=== PATIENT | female | born 2000 | race Caucasian/White ===

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

== ENCOUNTER → 2019-01-03 | Outpatient (REF) | payer OTHER | LOC: M LAB REF 16:56 | PROVIDERS: ATTEND Advanced Practice Midwife | DX: O26.893 Other specified pregnancy related conditions, third trimester (principal) ==

== ENCOUNTER 2019-01-13 18:33 | Outpatient (CLI) | payer OTHER ==
[~2019-01-13] VITALS: Ht 157.5 cm; Wt 100.6 kg
[2019-01-13 18:47] VITALS: BP 120/78
--- NOTE | 2019-01-13 20:11 | IPNPDOC ---
Text Note Date of Service The patient was seen on 01/13/19. NOTE Subjective: Patient is a 18-year-old female who is a at 38 weeks gestation with an SHARRON of 01/27/19 based off of her LMP and consistent with her first trimester ultrasound. Patient initiated care in her first trimester with [facility]. Her has been complicated by bipolar, depression and gallstones that causes a blockage resulting in elevated liver enzymes, which patient has been t aking Ursodiol for. Her livery enzymes have improved since starting medication. She presents to L&D with complaints of a gush of fluid that occurred this morning. She reports she hasn't had any leaking since. She reports active movement. She denies vaginal bleeding. She reports contractions to be about every 8 minutes at some points during the day but reports they aren't happening as often. Medical history: bipolar, depression, gallstones Surgical history: none Family history: lupus, fibromyalgia, Chiari malformation, depression, diabetes, heart disease Social history: denies any history of STD. Denies being a smoker. Denies alcohol or illicit drug use prior to or during . Objective: VS: see below. FHR: 120, moderate variability, positive accelerations, no decelerations. Contractions: occasional. SSE: thin white discharge noted. No pooling in vagina and no fluid leaking from cervical os with Valsalva. Cervix appears thick and closed. Nitrazine negative. Fern negative. A+Ox3. Respiratory rate is regular without use of accessory muscles. Cardiovascular. no clubbing and no pitting edema. Abdomen palpates soft and without tenderness. Patient declines SVE given information of cervical length and physical appearance of cervix. Assessment: IUP at 38 weeks gestation, not in active labor, Category I FHR tracing. Plan: Patient discharged to home. She has an appointment tomorrow in the office and will follow up. Reviewed access to care, kick count, labor signs, and danger signs to report. VS,Johnbone, I+O VS, Johnbone, I+O Vital Signs Date Time Temp Pulse Resp B/P (MAP) Pulse Ox O2 Delivery O2 Flow Rate FiO2 01/13/19 18:47 97.5 93 18 120/78 (92) DEEP AQUINO CNM Jan 13, 2019 20:11
== END 2019-01-13 20:15 | disposition home or self-care (01) ==
LOC: M LDO 18:33
PROVIDERS: ATTEND Advanced Practice Midwife
DX: O26.893 Other specified pregnancy related conditions, third trimester (principal); O47.1 False labor at or after 37 completed weeks of gestation; Z3A.38 38 weeks gestation of pregnancy

== ENCOUNTER → 2019-01-14 | Outpatient (CLI) | payer OTHER | LOC: M SMT 13:42 | PROVIDERS: ATTEND Advanced Practice Midwife | DX: O26.893 Other specified pregnancy related conditions, third trimester (principal) ==

== ENCOUNTER → 2019-01-21 | Outpatient (CLI) | payer OTHER ==
[~2019-01-21] MED LIST changes: -LAMO100T PO; +LAMO100T3 PO; +OMEP-218 PO; +ZOFR4TAB16 PO
[2019-01-22 00:41] VITALS: BP 124/70
[2019-01-22 01:02] VITALS: BP 124/86
== END ==
LOC: M LDO 21:11
PROVIDERS: ATTEND Specialist
DX: O47.1 False labor at or after 37 completed weeks of gestation (principal); Z3A.39 39 weeks gestation of pregnancy

== ENCOUNTER 2019-01-27 02:00 | Outpatient (CLI) | payer OTHER ==
[~2019-01-27] VITALS: Ht 157.5 cm; Wt 101.3 kg
[~2019-01-27 02:00] MED LIST changes: -OMEP-218 PO; -ZOFR4TAB16 PO
[2019-01-27 02:48] VITALS: BP 126/76
== END 2019-01-27 04:16 | disposition home or self-care (01) ==
LOC: M LDO 02:00
PROVIDERS: ATTEND Obstetrics & Gynecology
DX: O47.1 False labor at or after 37 completed weeks of gestation (principal); Z3A.40 40 weeks gestation of pregnancy; O99.343 Other mental disorders complicating pregnancy, third trimester; F31.9 Bipolar disorder, unspecified

== ENCOUNTER 2019-01-29 06:13 | Inpatient (IN) | payer OTHER ==
[~2019-01-29] VITALS: Ht 157.5 cm; Wt 102.3 kg
[2019-01-29] VITALS (41 sets, daily range): BP systolic 90–159; BP diastolic 50–99
[~2019-01-29 06:13] MED LIST changes: +LAMO100T PO; -LAMO100T3 PO
[2019-01-29] MEDS ORDERED: LACTATED RINGER'S 1000 ML IV STA (07:08)
[2019-01-29 08:11] LABS: HEMATOCRIT 33.9 % (36.0-47.0); HEMOGLOBIN 11.3 g/dl (12.0-15.5); MEAN CORPUSCULAR HEMOGLOBIN 29.4 pg (27.0-33.0); MEAN CORPUSCULAR HGB CONC 33.3 g/dl (32.0-36.5); MEAN CORPUSCULAR VOLUME 88.3 fl (80.0-96.0); PLATELET COUNT, AUTOMATED 274 10^3/uL (150-450); RED BLOOD COUNT 3.84 10^6/uL (4.00-5.40); WHITE BLOOD COUNT 10.6 10^3/uL (4.0-10.0)
[2019-01-29] MEDS ORDERED: miSOPROStol 50 MCG 1/2 TAB (S0191) PO SCH (09:00)
--- NOTE | 2019-01-29 09:48 | HPE ---
DATE OF ADMISSION: 01/29/2019 Ignacio is a 18-year-old 1, para 0 at 40-2/7 weeks gestation, estimated date of confinement ( EDC) of 01/27/2019 based on last menstrual period and confirmed by first trimester ultrasound. She presents to labor and delivery today for induction of labor due to term . She does report some occasional contractions. Denies vaginal bleeding or leakage of fluid. The fetus has been active. Her care was initiated at [facility] in the first trimester. course complicated by a history of bipolar depression. No current medications and none in the last year. Cholelithiasis with elevated liver enzymes. She has been on ursodiol 300 mg twice a day, history of Staphylococcus aureus (MRSA) with nasal swabs, negative results. Rubella nonimmune. OBSTETRICAL HISTORY: [facility] OBSTETRIC LABS: O negative, antibody screen negative, rubella nonimmune, VDRL nonreactive. Urine culture no growth. Hep B surface antigen negative. HIV negative. Hep C antibody nonreactive. Gonorrhea and chlamydia negative. Panorama testing low risk for aneuploidy. Female fetus. Gestational diabetic screening normal at 117. GBS negative, MRSA culture was times three negative. Recent liver enzymes with on 12/12/2018: AST 14, ALT 17, bile acids 4.7. PAST MEDICAL HISTORY: Bipolar depression, seasonal allergies. SURGERIES: Tonsils and adenoids. FAMILY HISTORY: Autism, lupus and fibromyalgia, deep venous thrombosis (DVT), Chiari malformation, varicose veins, depression, anxiety, diabetes, heart disease. SOCIAL HISTORY: The patient is single. There is no father of the baby involved. She does have a supportive grandmother and multiple family members. She is a nonsmoker. Denies alcohol and drug use. No history of any sexually transmitted infections and denies history of abuse physical, sexual and emotional. ALLERGIES: No known drug allergies. CURRENT MEDICATIONS: - ursodiol 300 mg twice a day - Zofran 4 mg as needed - vitamin OBJECTIVE: Temperature 97.2, pulse 96, respiration 18, BP 129/82 , 139/102, 142/96. She is alert and oriented times three. She is smiling and talkative. She is in no apparent discomfort. heart rate is 120 with moderate variability, positive accelerations, no decelerations observed. There is an occasional contraction. Her abdomen is gravid and cephalic presentation. Estimated weight 8 pounds. Sterile vaginal exam: 1 cm dilated, 25% effaced, -3 station, posterior moderate texture. No show with exam. ASSESSMENT: Interim at 40-2/7 weeks. heart rate category 1, term . PLAN: Admit the patient to labor and delivery for induction of labor. Routine labs with the addition of a pre-eclamptic profile and a spot urine due to the elevated BP upon arrival. Saline lock. Out of bed ad roman. Regular diet at this time. Misoprostol 50 mcg by mouth every 4 hours for cervical ripening. I did review risks and benefits and alternatives to today's inductions. The patient and her grandmother's questions have been answered. She requests to proceed with induction. She has been verbally consented for emergency surgery, blood products if necessary. I do anticipate cervical ripening.
[2019-01-29 10:00] LABS: ALT/SGPT 11 U/L (12-78); BILIRUBIN,TOTAL 0.3 MG/DL (0.2-1.0); CREATININE FOR GFR 0.67 MG/DL (0.55-1.30); LDH LACTATE DEHYDROGENASE 138 U/L (84-246); URIC ACID 6.5 MG/DL (2.6-6.0)
[2019-01-29 10:01] LABS: TOTAL PROTEIN,RANDOM URINE 41.9 MG/DL (0.0-12.0)
[2019-01-29] MEDS ORDERED: FENTANYL 2MCG/ML ROPIVACAINE 0.2% IN 0.9% NACL 100ML IVBAG As Ordered ONE (13:20)
[2019-01-29] MEDS ORDERED: diphenhydrAMINE INJ 50MG/ML VIAL (J1200) IV PRN (13:25)
[2019-01-29] MEDS ORDERED: NALOXONE INJ 0.4 MG/1 ML VIAL (J2310) IV PRN (13:25)
[2019-01-29] MEDS ORDERED: EPIDURAL COMMENT XX SCH (13:25)
[2019-01-29] MEDS ORDERED: ONDANSETRON 4MG/2ML VIAL (J2405) IV PRN (13:25)
[2019-01-29] MEDS ORDERED: REFRIGERATOR IV KEYS XX PRN (13:25)
[2019-01-29] MEDS ORDERED: EPIDURAL/PCA KEYS XX PRN (13:25)
[2019-01-29] MEDS: FENTANYL/ROPIVACAINE/NACL BAG 100 ML EPIDURAL SCH ×2 (13:25→19:16)
[2019-01-29] MEDS ORDERED: LACTATED RINGER'S 1000 ML IV ONE (14:00)
[2019-01-29] MEDS: LR 1,000 ML IV SCH ×2 (14:25→16:39)
[2019-01-29] MEDS ORDERED: LR 1,000 ML IV SCH (16:11)
[2019-01-29] MEDS ORDERED: OXYTOCIN DRIP 30 UNITS in APPROPRIATE DILUENT 1 EA IV SCH ×2 (16:15→23:39)
[2019-01-29] MEDS ORDERED: DIBUCAINE 1% OINTMENT 30GM TOP PRN (23:45)
[2019-01-29] MEDS ORDERED: RHOGAM 300 MCG (1500 IU) INJ (J2790) IM SCH (23:45)
[2019-01-29] MEDS ORDERED: IBUPROFEN 600 MG TAB PO PRN (23:45)
[2019-01-29] MEDS ORDERED: IBUPROFEN 800 MG TAB PO PRN (23:45)
[2019-01-29] MEDS ORDERED: MEASLES,MUMPS,RUBELLA VACCINE INJ (MMR-II) (90707) SC SCH (23:45)
[2019-01-29] MEDS ORDERED: ACETAMINOPHEN TAB 650MG DOSE (2X325MG) PO PRN (23:45)
[2019-01-29] MEDS ORDERED: DOCUSATE SODIUM 100 MG CAP PO PRN (23:45)
[2019-01-29] MEDS ORDERED: METHYLERGONOVINE MALEATE 0.2 MG TAB PO PRN (23:45)
[2019-01-30 01:34] VITALS: BP 125/90
[2019-01-30 05:42] VITALS: BP 120/68
[2019-01-30] MEDS: ACETAMINOPHEN 500 MG TAB PO PRN ×2 (07:02→17:58)
--- NOTE | 2019-01-30 07:53 | DN ---
DATE OF DELIVERY: 01/29/2019 DESCRIPTION OF DELIVERY: Ignacio is a 18-year-old, 1, para 1-0-0-1 now, who was admitted to labor and delivery for induction of labor. Misoprostol was utilized and IV Pitocin and labor did ensue. She utilized an epidural for her labor coping. She reached full dilation at 2130. She pushed to a normal spontaneous vaginal delivery of a live female in direct occiput posterior (OP) position with much coaching and encouragement. The shoulders delivered spontaneously and the corpus immediately followed. The female was placed on the maternal abdomen crying and active. Mouth and nares were bulb suctioned. Cord was clamped times two once pulsations ceased and cut by the maternal grandmother. Cord blood was obtained. Spontaneous expulsion of an intact placenta with three-vessel cord by Maurer mechanism was at 2249. Uterine hemostasis achieved with IV Pitocin rapid infusion and uterine fundal massage. Estimated blood loss 400 mL. Perineum and vagina inspected and noted to have a second-degree laceration. Laceration repaired with #3-0 Rapide in the usual fashion. female weighed 7 pounds 11 ounces, 3500 grams, are 8 and 9. Mom is going to bottle feed her daughter and the mom has named her daughter Caleb. At the close of delivery, lap counts, needle counts and instrument counts were correct and verified.
[2019-01-30] MEDS: PRENATAL VITAMINS CHEWABLE TABLET PO SCH (09:00)
[2019-01-30 17:41] VITALS: BP 132/77
[2019-01-31] MEDS: ACETAMINOPHEN 500 MG TAB PO PRN (05:03)
[2019-01-31 05:50] VITALS: BP 118/73
[2019-01-31] MEDS ORDERED: INFLUENZA QUADRIVALENT PF VACCINE 0.5ML SYRINGE (90686) IM ONE (09:00)
[2019-01-31] MEDS: PRENATAL VITAMINS CHEWABLE TABLET PO SCH (09:41)
== END 2019-01-31 14:00 | disposition home or self-care (01) | DRG 560 ==
LOC: EEVIPCON 06:13 → M LDI 06:13 → M OBS 01-30 01:33
PROVIDERS: ADMIT Obstetrics & Gynecology; ATTEND Advanced Practice Midwife
PROC: 10E0XZZ Delivery of Products of Conception, External Approach (ICD-10-PCS; principal; 2019-01-29)
PROC: 3E0P7GC Introduction of Other Therapeutic Substance into Female Reproductive, Via Natural or Artificial Opening (ICD-10-PCS; 2019-01-29)
PROC: 0KQM0ZZ Repair Perineum Muscle, Open Approach (ICD-10-PCS; 2019-01-29)
DX: O48.0 Post-term pregnancy (principal); Z3A.40 40 weeks gestation of pregnancy; Z37.0 Single live birth; O99.62 Diseases of the digestive system complicating childbirth; K80.20 Calculus of gallbladder without cholecystitis without obstruction; O70.1 Second degree perineal laceration during delivery

== ENCOUNTER 2019-04-18 14:37 | Emergency (ER) | payer OTHER ==
[~2019-04-18] VITALS: Ht 157.5 cm; Wt 94.9 kg
[~2019-04-18 14:37] MED LIST changes: -LAMO100T PO; +LAMO100T3 PO
[2019-04-18 15:35] LABS: BASO % 0.5 % (0.0-1.0); EOS # 0.1 10^3/uL (0.0-0.5); EOS % 1.1 % (0.0-3.0); HEMATOCRIT 40.9 % (36.0-47.0); LYMPH % 24.8 % (24.0-44.0); MEAN CORPUSCULAR HGB CONC 31.8 g/dl (32.0-36.5); MEAN CORPUSCULAR VOLUME 88.1 fl (80.0-96.0); MONO # 0.4 10^3/uL (0.0-0.8); NEUTROPHILS # 5.6 10^3/uL (1.5-8.5); NEUTROPHILS % 68.5 % (36.0-66.0); PLATELET COUNT, AUTOMATED 370 10^3/uL (150-450); RED BLOOD COUNT 4.64 10^6/uL (4.00-5.40); WHITE BLOOD COUNT 8.2 10^3/uL (4.0-10.0)
[2019-04-18 15:54] LABS: BLOOD UREA NITROGEN 12 MG/DL (7-18); CALCIUM LEVEL 9.3 MG/DL (8.5-10.1); CARBON DIOXIDE LEVEL 28 MEQ/L (21-32); CHLORIDE LEVEL 109 MEQ/L (98-107); CREATININE FOR GFR 1.04 MG/DL (0.55-1.30); GLUCOSE, FASTING 83 MG/DL (70-100); POTASSIUM SERUM 4.7 MEQ/L (3.5-5.1); SODIUM LEVEL 143 MEQ/L (136-145)
[2019-04-18] MEDS ORDERED: OMEP-218 PO (16:19)
[2019-04-18] MEDS ORDERED: ZOFR4TAB16 PO (16:19)
[2019-04-18 16:22] VITALS: BP 130/84
== END 2019-04-18 16:24 | disposition home or self-care (01) ==
LOC: M ED 14:37
DX: K21.9 Gastro-esophageal reflux disease without esophagitis (principal); K29.00 Acute gastritis without bleeding; J45.909 Unspecified asthma, uncomplicated; F31.9 Bipolar disorder, unspecified; Z79.899 Other long term (current) drug therapy

== ENCOUNTER 2019-05-20 00:43 | Emergency (ER) | payer OTHER ==
[~2019-05-20] VITALS: Ht 157.5 cm; Wt 95.5 kg
[~2019-05-20 00:43] MED LIST changes: +OMEP-218 PO; +ZOFR4TAB16 PO
[2019-05-20 01:41] LABS: BASO # 0.1 10^3/uL (0.0-0.2); BASO % 0.9 % (0.0-1.0); EOS # 0.4 10^3/uL (0.0-0.5); EOS % 3.2 % (0.0-3.0); HEMATOCRIT 44.5 % (36.0-47.0); HEMOGLOBIN 13.7 g/dl (12.0-15.5); LYMPH # 3.1 10^3/uL (1.5-5.0); LYMPH % 26.8 % (24.0-44.0); MEAN CORPUSCULAR HEMOGLOBIN 27.1 pg (27.0-33.0); MEAN CORPUSCULAR HGB CONC 30.8 g/dl (32.0-36.5); MEAN CORPUSCULAR VOLUME 88.1 fl (80.0-96.0); MONO # 0.9 10^3/uL (0.0-0.8); MONO % 7.4 % (0.0-5.0); NEUTROPHILS # 7.1 10^3/uL (1.5-8.5); NEUTROPHILS % 61.4 % (36.0-66.0); PLATELET COUNT, AUTOMATED 356 10^3/uL (150-450); RED BLOOD COUNT 5.05 10^6/uL (4.00-5.40); WHITE BLOOD COUNT 11.5 10^3/uL (4.0-10.0)
[2019-05-20 05:06] VITALS: BP 124/76
--- NOTE | 2019-05-20 05:14 | REPVR ---
PROCEDURE INFORMATION: Exam: US First Trimester, Transabdominal Exam date and time: 05/20/2019 3:15 AM Age: 18 years old Clinical indication: Lmp or gestational age (in weeks): 5w5d; Antepartum complications; Bleeding; ; Additional info: Vaginal bleeding, lower pelvic pain TECHNIQUE: Imaging protocol: Real-time transabdominal obstetrical ultrasound of the maternal pelvis and a first trimester , less than 14 weeks 0 days, with image documentation. COMPARISON: No relevant prior studies available. FINDINGS: GESTATION: Gestation: Single intrauterine . heart rate 117 bpm. Yolk sac identified. Heart rate: See Gestation Finding. Placenta: Unremarkable. No subchorionic bleed. Amniotic fluid: Amniotic and chorionic fluid are normal for gestational age. BIOMETRY: Estimated gestational age: 6 weeks 3 days gestation. Interior-Rump length: Interior-rump length 0.6 cm. Estimated due date: 01/10/2020. MATERNAL: Uterus: Unremarkable. Cervix: Unremarkable. Right adnexa: The right ovary measures 3.2 x 2.3 x 2.4 cm. Normal blood flow. Left adnexa: The left ovary measures 4.7 x 3.6 by 3.6 cm. Left ovarian cyst measures 3.5 x 2.5 x 1.8 cm. This likely represents a corpus luteum. Normal blood flow. Intraperitoneal: No intraperitoneal free fluid. IMPRESSION: 1. Single intrauterine 6 weeks 3 days gestation. Estimated due date 01/10/2020. 2. heart rate 117 bpm. No subchorionic hemorrhage identified. Yolk sac identified. 3. Left ovarian cyst measuring 3.5 x 2.5 x 1.8 cm. This likely represents a corpus luteal cyst. Electronically signed by: Colton Covington On 05/20/2019 05:13:42 AM
== END 2019-05-20 05:07 | disposition home or self-care (01) ==
LOC: M ED 00:43
DX: O20.0 Threatened abortion (principal); Z3A.01 Less than 8 weeks gestation of pregnancy

== ENCOUNTER 2019-06-13 09:13 | Emergency (ER) | payer OTHER ==
[~2019-06-13] VITALS: Ht 157.5 cm; Wt 93.6 kg
[2019-06-13 11:12] LABS: INFLUENZA A AMPLIFICATION NEGATIVE (NEGATIVE); INFLUENZA B AMPLIFICATION NEGATIVE (NEGATIVE)
[2019-06-13] MEDS ORDERED: PENI500T PO (12:06)
[2019-06-13 12:21] VITALS: BP 119/74
== END 2019-06-13 12:22 | disposition home or self-care (01) ==
LOC: M ED 09:13
DX: J02.0 Streptococcal pharyngitis (principal)

== ENCOUNTER → 2019-06-26 | Outpatient (CLI) | payer OTHER ==
[~2019-06-26] MED LIST changes: +PENI500T PO
--- NOTE | 2019-06-26 13:10 | REP ---
Clinical: Dating and viability. Technique: Transabdominal first trimester obstetrical ultrasound with color Doppler evaluation. Findings: Ultrasound demonstrates single live early intrauterine . CRL of 5.9 cm corresponds to 12 weeks 3 days gestational age. Estimated date of delivery 01/05/2020. heart rate equals 157 beats per minute. Impression: Current examination demonstrates age at 12 weeks 3 days. Complete anatomical assessment should be performed at 19-20 weeks. Electronically Signed by Colton Hayes MD 06/26/2019 01:02 P
== END ==
LOC: M RAD 12:29
PROVIDERS: ATTEND Physician Assistant
DX: Z32.01 Encounter for pregnancy test, result positive (principal); Z3A.12 12 weeks gestation of pregnancy

== ENCOUNTER → 2020-04-12 | Outpatient (REF) | payer OTHER | LOC: M LAB REF 16:13 | PROVIDERS: ATTEND Physician Assistant | DX: J02.9 Acute pharyngitis, unspecified (principal) ==

== ENCOUNTER → 2020-06-09 | Outpatient (REF) | payer OTHER | LOC: M LAB REF 12:24 | PROVIDERS: ATTEND Nurse Practitioner Family | DX: J02.9 Acute pharyngitis, unspecified (principal) ==

== ENCOUNTER → 2020-07-27 | Outpatient (REF) | payer OTHER ==
[2020-07-27 15:55] LABS: GLUCOSE CHALLENGE TEST 1 HOUR 105 MG/DL (LESS THAN 140)
[2020-07-27 16:01] LABS: HEMATOCRIT 38.1 % (36.0-47.0); HEMOGLOBIN 12.4 g/dl (12.0-15.5); MEAN CORPUSCULAR HEMOGLOBIN 28.5 pg (27.0-33.0); MEAN CORPUSCULAR HGB CONC 32.5 g/dl (32.0-36.5); MEAN CORPUSCULAR VOLUME 87.6 fl (80.0-96.0); PLATELET COUNT, AUTOMATED 309 10^3/uL (150-450); RED BLOOD COUNT 4.35 10^6/uL (4.00-5.40); WHITE BLOOD COUNT 10.6 10^3/uL (4.0-10.0)
[2020-07-27 16:49] LABS: HEPATITIS C VIRUS ABY INDEX < 0.0 INDEX (<0.8)
[2020-07-27 16:50] LABS: HIV 1&2 SCREEN CENTAUR NEGATIVE (NEGATIVE)
== END ==
LOC: M PLALAB 12:43
PROVIDERS: ATTEND Obstetrics & Gynecology
DX: O30.041 Twin pregnancy, dichorionic/diamniotic, first trimester (principal)

== ENCOUNTER → 2020-07-29 | Outpatient (CLI) | payer OTHER ==
--- NOTE | 2020-07-29 19:57 | REP ---
INDICATION: TWIN GESTATION,DATING AND VIABILITY. Dichorionic diamniotic twin . COMPARISON: None. TECHNIQUE: Transabdominal obstetric sonography. FINDINGS: Dichorionic diamniotic twin gestation is seen. Fetus a is transverse along the maternal right with heart rate 160 beats per minute. A posterior grade 0 placenta without evidence of previa. Fetus B is breech along the maternal left. heart rate 150 beats per minute. Posterior grade 0 placenta no evidence of previa. Closed cervical length 3.7 cm measured transabdominally. Biometry chart fetus a: BPD 2.6 cm, 14 weeks 4 days Head circumference 9.7 cm, 14 weeks 3 days Abdominal circumference 8.5 cm, 14 weeks 5 days Femur length 1.1 cm, 13 weeks 1 day HC AC ratio normal 1.15 Cephalic index normal 0.74 Estimated weight 88 g, 0 lb 3 oz, 26 percentile for 14 weeks 1 day Biometry chart fetus B: BPD 2.3 cm, 13 weeks 5 days Head circumference 8.8 cm, 13 weeks 6 days Abdominal circumference 7.9 cm, 14 weeks 2 days Femur length 1.1 cm, 13 weeks 2 days HC AC ratio normal 1.11 Cephalic index normal 0.69 Estimated weight 82 g, 0 lb 2 oz, 13th percentile for 14 weeks 1 day IMPRESSION: SHARRON by stabbed list dates, January 26, 2021. <Electronically signed by Davon Reynaga > 07/29/201953
== END ==
LOC: M WHC 13:24
PROVIDERS: ATTEND Advanced Practice Midwife
DX: O30.041 Twin pregnancy, dichorionic/diamniotic, first trimester (principal); Z3A.14 14 weeks gestation of pregnancy

== ENCOUNTER → 2020-08-02 | Outpatient (CLI) | payer OTHER | LOC: M PLALAB 08:54 | PROVIDERS: ATTEND Advanced Practice Midwife | DX: Z34.82 Encounter for supervision of other normal pregnancy, second trimester (principal) ==

== ENCOUNTER → 2020-08-02 | Outpatient (REF) | payer OTHER | LOC: M SFHCWAGY 13:27 | PROVIDERS: ATTEND Advanced Practice Midwife | DX: O30.049 Twin pregnancy, dichorionic/diamniotic, unspecified trimester (principal) ==

== ENCOUNTER → 2020-08-12 | Outpatient (REF) | payer OTHER | LOC: M PLALAB 15:34 | PROVIDERS: ATTEND Obstetrics & Gynecology | DX: Z36.89 Encounter for other specified antenatal screening (principal); Z3A.16 16 weeks gestation of pregnancy ==

== ENCOUNTER → 2020-08-23 | Outpatient (REF) | payer OTHER | LOC: M SFHCWAGY 09:55 | PROVIDERS: ATTEND Obstetrics & Gynecology | DX: Z36.9 Encounter for antenatal screening, unspecified (principal); Z3A.16 16 weeks gestation of pregnancy ==

== ENCOUNTER → 2020-08-30 | Outpatient (CLI) | payer OTHER ==
--- NOTE | 2020-08-31 13:34 | REP ---
INDICATION: TWIN GESTATON,ANATOMY. COMPARISON: Comparison sonography July 29, 2020.. TECHNIQUE: Transabdominal obstetric sonography. Multiple gestation study. FINDINGS: Scanning through the gravid uterus demonstrates a twin intrauterine gestation. Fetus a is breech in position head along the maternal right. Fetus B is cephalic in position with fetus along the maternal left. Posterior grade 1 placenta. Diamniotic dichorionic gestation. heart rate for twin a is 153 beats per minute and that for twin B is recorded at 153 beats per minute as well. Amniotic fluid is felt to be normal subjectively around both gestations. The following anatomic structures are identified for fetus a and are felt to be unremarkable: cranium and intracranial contents, face and profile, four-chamber heart with left and right ventricular outflow tract views, diaphragm, left-sided stomach, abdominal wall cord insertion, right and left kidney, urinary bladder and spine, upper and lower extremities, three-vessel cord. nose and lips are less than optimally seen due to position. Biometry chart fetus a: BPD 4.2 cm, 18 weeks 4 days Head circumference 15.9 cm, 18 weeks 5 days Abdominal circumference 14.2 cm, 19 weeks 4 days Femur length 2.7 cm, 18 weeks 1 day Humeral length 2.7 cm, 18 weeks 4 days HC AC ratio normal 1.12 Cephalic index normal 0.71 Estimated weight 264 g, 0 lb 9 oz, 58th percentile for 18 weeks 5 days The following anatomic structures are identified in fetus B and felt to be unremarkable: cranium and intracranial contents, face and profile nose and lips, four-chamber heart with left and right ventricular outflow tract views, diaphragm, left-sided stomach, abdominal wall cord insertion, right and left kidney, urinary bladder, upper and lower extremities, three-vessel cord. spine is less than optimally seen for fetus B due to position. Biometry chart fetus B: BPD 4.1 cm, 18 weeks 3 days Head circumference 15.5 cm, 18 weeks 3 days Abdominal circumference 12.4 cm, 18 weeks 0 days Femur length 2.7 cm, 18 weeks 0 days Humeral length 2.5 cm, 17 weeks 6 days HC AC ratio normal 1.25 Cephalic index normal 0.72 Estimated weight 225 g, 0 lb 7 oz, 16th percentile for 18 weeks 5 days IMPRESSION: Viable twin intrauterine gestation at 18 weeks 5 days by known SHARRON, 26 January 2021. Appropriate interval growth. nose and lips for fetus a and spine on fetus B were less than optimally seen due to position. <Electronically signed by Davon Reynaga > 08/31/20 [id number]
== END ==
LOC: M WHC 07:54
PROVIDERS: ATTEND Advanced Practice Midwife
DX: O30.042 Twin pregnancy, dichorionic/diamniotic, second trimester (principal); Z3A.18 18 weeks gestation of pregnancy

== ENCOUNTER → 2020-10-18 | Outpatient (CLI) | payer OTHER | LOC: M WHC 15:03 | PROVIDERS: ATTEND Obstetrics & Gynecology | DX: O30.042 Twin pregnancy, dichorionic/diamniotic, second trimester (principal); Z53.9 Procedure and treatment not carried out, unspecified reason ==

== ENCOUNTER → 2020-11-17 | Outpatient (CLI) | payer OTHER ==
[2020-11-17 15:37] LABS: HEMATOCRIT 33.7 % (36.0-47.0); HEMOGLOBIN 10.4 g/dl (12.0-15.5); MEAN CORPUSCULAR HEMOGLOBIN 26.7 pg (27.0-33.0); MEAN CORPUSCULAR HGB CONC 30.9 g/dl (32.0-36.5); MEAN CORPUSCULAR VOLUME 86.6 fl (80.0-96.0); PLATELET COUNT, AUTOMATED 399 10^3/uL (150-450); RED BLOOD COUNT 3.89 10^6/uL (4.00-5.40); WHITE BLOOD COUNT 10.2 10^3/uL (4.0-10.0)
== END ==
LOC: M PLALAB 12:27
PROVIDERS: ATTEND Advanced Practice Midwife
DX: Z36.89 Encounter for other specified antenatal screening (principal); O30.042 Twin pregnancy, dichorionic/diamniotic, second trimester; Z3A.00 Weeks of gestation of pregnancy not specified
CPT/HCPCS: 36415; 82950; 85027; 86850; 86900; 86901; J2790

== ENCOUNTER 2020-11-22 21:03 | Outpatient (CLI) | payer OTHER ==
[~2020-11-22] VITALS: Ht 157.5 cm; Wt 108.5 kg
[2020-11-22 21:49] VITALS: BP 114/58
[2020-11-22 22:39] VITALS: BP 92/52
--- NOTE | 2020-11-23 01:05 | IPNPDOC ---
Text Note Date of Service The patient was seen on 11/23/20. NOTE Subjective: Ignacio is a 19-year-old female who is a at 30.5 weeks gestation with an SHARRON of 01/26/21. She is with di/di twins. Her has also been complicated by morbid obesity with her starting BMI at 41. She presents to L&D with complaints of cramping that started after she ate [place] food and had intercourse. She reports active movement. She denies leaking of fluid or vaginal bleeding. After she had been in the department for about an hour she reported not having anymore cramping. Objective: FHR: difficult to obtain for more than 5-10 minutes at a time due to activity Twin A: 135, moderate variability, positive accelerations, no decelerations Twin B: 140, moderate variability, positive accelerations, no decelerations Mears: irregular and spacing General: alert and oriented. Does not appear to be in any discomfort. Respiratory: Regular rate and rhythm. No use of accessory muscles Abdomen: gravid and soft to palpation Ultrasound: See below Assessment: di/di twin gestation at 30 weeks 5 days gestation, not in active labor Plan: Patient discharged to home with precautions. She has an appointment this week. Encouraged to keep. Reviewed access to care, kick count, labor signs and danger signs to report. VS,Fishbone, I+O VS, Fishbone, I+O Vital Signs Date Time Temp Pulse Resp B/P (MAP) Pulse Ox O2 Delivery O2 Flow Rate FiO2 11/22/20 22:39 101 18 92/52 (65) NAME: IGNACIO DUKE DATE OF : 2000 BUSINESS NUMBER: [id number] AGE: 19 SEX: F REPORT #: [id number] ROOM: [facility] TECHNOLOGIST: JOHAN DOCTOR: DEEP AQUINO CNM Ordered for Date&Time: 11/22/200 cc: [~ rep ct ivnm] Service Date&Time: 11/22/20 6924 EXAMINATION REQUESTED: BPP W/O NON STRESS TEST REASON FOR PATIENT VISIT: LABOR CHECK REASON FOR EXAMINATION: difficult to get non-stress test PROCEDURE INFORMATION: Exam: US , Limited and US , Transvaginal Exam date and time: 11/22/2020 11:47 PM Clinical indication: Pain; Pain indication: Cramping; ; Additional info: Difficult to get non-stress test. Twin gestation. High risk . TECHNIQUE: Imaging protocol: Real-time ultrasound of the maternal uterus with image documentation. Transvaginal imaging was used for better evaluation of the fetus, adnexa, and/or cervix. Exam focused on the clinical indication. COMPARISON: No relevant prior studies available. FINDINGS: Gestation: Twin live intrauterine gestation. heart rate: heart rate for fetus A is 149 bpm. heart rate for fetus B is 140 bpm. Placenta: Placenta is posterior for fetus A. Placenta is left posterolateral for fetus B Amniotic fluid: Amniotic fluid is adequate. BIOMETRY: Gestational age (AUA): biometry was not measured. MATERNAL: Cervix: Cervix measures 4.0 cm in length. Cervix is long and closed, however, there is small fluid in the endocervical canal. No cervical funneling. IMPRESSION: 1. Twin live intrauterine gestation. 2. biometry was not measured. 3. Cervix is long and closed, however, there is small fluid in the endocervical canal. PROCEDURE INFORMATION: Exam: US Doppler Velocimetry of the Umbilical Artery Exam date and time: 11/22/2020 11:47 PM Clinical indication: Pain; Pain indication: Cramping; ; Additional info: Difficult to get non-stress test TECHNIQUE: Imaging protocol: US Doppler velocimetry of the umbilical artery with Doppler color and waveform analysis. COMPARISON: No relevant prior studies available. FINDINGS: Umbilical cord and insertion: There are 2 umbilical arteries and 1 umbilical vein. Cord insertion on the abdominal wall is normal. Umbilical artery Doppler: Waveforms are within normal limits for age. Umbilical artery peak systolic velocity: Peak systolic velocity is 29 cm/s. Umbilical artery systolic to diastolic ratio: Systolic to diastolic ratio is within normal limits for age. 2.2. Other findings: Fetus A. IMPRESSION: Unremarkable umbilical Doppler for age. PROCEDURE INFORMATION: Exam: US Doppler Velocimetry of the Umbilical Artery Exam date and time: 11/22/2020 11:47 PM Clinical indication: Pain; Pain indication: Cramping; ; Additional info: Difficult to get non-stress test TECHNIQUE: Imaging protocol: US Doppler velocimetry of the umbilical artery with Doppler color and waveform analysis. COMPARISON: No relevant prior studies available. FINDINGS: Umbilical cord and insertion: There are 2 umbilical arteries and 1 umbilical vein. Cord insertion on the abdominal wall is normal. Umbilical artery Doppler: Waveforms are within normal limits for age. Umbilical artery peak systolic velocity: Peak systolic velocity is 62 cm/s Umbilical artery systolic to diastolic ratio: Systolic to diastolic ratio is within normal limits for age. 2.97. Other findings: Fetus B. IMPRESSION: Unremarkable umbilical Doppler for age. PROCEDURE INFORMATION: Exam: US Biophysical Profile Without Non-Stress Test Exam date and time: 11/22/2020 11:47 PM Clinical indication: Pain; Pain indication: Cramping; ; Additional info: Difficult to get non-stress test TECHNIQUE: Imaging protocol: US biophysical profile without non-stress testing. COMPARISON: No relevant prior studies available. FINDINGS: Multifetal identity: Fetus A BIOPHYSICAL PROFILE: Breathin/2 Gross body movements: 2/2 tone: 2/2 Qualitative amniotic fluid: 2/2 Biophysical Profile Score: 8/8 IMPRESSION: Biophysical profile score is 8 out of 8 for fetus A. PROCEDURE INFORMATION: Exam: US Biophysical Profile Without Non-Stress Test Exam date and time: 11/22/2020 11:47 PM Age: 19 years old Clinical indication: Pain; Pain indication: Cramping; ; Additional info: Difficult to get non-stress test TECHNIQUE: Imaging protocol: US biophysical profile without non-stress testing. COMPARISON: OBS COMPLETE US 08/30/2020 8:15 AM FINDINGS: Multifetal identity: Fetus B BIOPHYSICAL PROFILE: Breathin/2 Gross body movements: 2/2 tone: 2/2 Qualitative amniotic fluid: 2/2 Biophysical Profile Score: 8/8 IMPRESSION: Biophysical profile score is 8 out of 8 for fetus B. Electronically signed by: Rey Grimaldo On 11/23/2020 01:56:19 AM DEEP AQUINO Nov 23, 2020 01:05
--- NOTE | 2020-11-23 01:56 | REPVR ---
PROCEDURE INFORMATION: Exam: US , Limited and US , Transvaginal Exam date and time: 11/22/2020 11:47 PM Clinical indication: Pain; Pain indication: Cramping; ; Additional info: Difficult to get non-stress test. Twin gestation. High risk . TECHNIQUE: Imaging protocol: Real-time ultrasound of the maternal uterus with image documentation. Transvaginal imaging was used for better evaluation of the fetus, adnexa, and/or cervix. Exam focused on the clinical indication. COMPARISON: No relevant prior studies available. FINDINGS: Gestation: Twin live intrauterine gestation. heart rate: heart rate for fetus A is 149 bpm. heart rate for fetus B is 140 bpm. Placenta: Placenta is posterior for fetus A. Placenta is left posterolateral for fetus B Amniotic fluid: Amniotic fluid is adequate. BIOMETRY: Gestational age (AUA): biometry was not measured. MATERNAL: Cervix: Cervix measures 4.0 cm in length. Cervix is long and closed, however, there is small fluid in the endocervical canal. No cervical funneling. IMPRESSION: 1. Twin live intrauterine gestation. 2. biometry was not measured. 3. Cervix is long and closed, however, there is small fluid in the endocervical canal. PROCEDURE INFORMATION: Exam: US Doppler Velocimetry of the Umbilical Artery Exam date and time: 11/22/2020 11:47 PM Clinical indication: Pain; Pain indication: Cramping; ; Additional info: Difficult to get non-stress test TECHNIQUE: Imaging protocol: US Doppler velocimetry of the umbilical artery with Doppler color and waveform analysis. COMPARISON: No relevant prior studies available. FINDINGS: Umbilical cord and insertion: There are 2 umbilical arteries and 1 umbilical vein. Cord insertion on the abdominal wall is normal. Umbilical artery Doppler: Waveforms are within normal limits for age. Umbilical artery peak systolic velocity: Peak systolic velocity is 29 cm/s. Umbilical artery systolic to diastolic ratio: Systolic to diastolic ratio is within normal limits for age. 2.2. Other findings: Fetus A. IMPRESSION: Unremarkable umbilical Doppler for age. PROCEDURE INFORMATION: Exam: US Doppler Velocimetry of the Umbilical Artery Exam date and time: 11/22/2020 11:47 PM Clinical indication: Pain; Pain indication: Cramping; ; Additional info: Difficult to get non-stress test TECHNIQUE: Imaging protocol: US Doppler velocimetry of the umbilical artery with Doppler color and waveform analysis. COMPARISON: No relevant prior studies available. FINDINGS: Umbilical cord and insertion: There are 2 umbilical arteries and 1 umbilical vein. Cord insertion on the abdominal wall is normal. Umbilical artery Doppler: Waveforms are within normal limits for age. Umbilical artery peak systolic velocity: Peak systolic velocity is 62 cm/s Umbilical artery systolic to diastolic ratio: Systolic to diastolic ratio is within normal limits for age. 2.97. Other findings: Fetus B. IMPRESSION: Unremarkable umbilical Doppler for age. PROCEDURE INFORMATION: Exam: US Biophysical Profile Without Non-Stress Test Exam date and time: 11/22/2020 11:47 PM Clinical indication: Pain; Pain indication: Cramping; ; Additional info: Difficult to get non-stress test TECHNIQUE: Imaging protocol: US biophysical profile without non-stress testing. COMPARISON: No relevant prior studies available. FINDINGS: Multifetal identity: Fetus A BIOPHYSICAL PROFILE: Breathin/2 Gross body movements: 2/2 tone: 2/2 Qualitative amniotic fluid: 2/2 Biophysical Profile Score: 8/8 IMPRESSION: Biophysical profile score is 8 out of 8 for fetus A. PROCEDURE INFORMATION: Exam: US Biophysical Profile Without Non-Stress Test Exam date and time: 11/22/2020 11:47 PM Age: 19 years old Clinical indication: Pain; Pain indication: Cramping; ; Additional info: Difficult to get non-stress test TECHNIQUE: Imaging protocol: US biophysical profile without non-stress testing. COMPARISON: OBS COMPLETE US 08/30/2020 8:15 AM FINDINGS: Multifetal identity: Fetus B BIOPHYSICAL PROFILE: Breathin/2 Gross body movements: 2/2 tone: 2/2 Qualitative amniotic fluid: 2/2 Biophysical Profile Score: 8/8 IMPRESSION: Biophysical profile score is 8 out of 8 for fetus B. Electronically signed by: Rey Suarez 11/23/2020 01:56:19 AM
== END 2020-11-23 00:48 | disposition home or self-care (01) ==
LOC: M LDO 21:03
PROVIDERS: ATTEND Advanced Practice Midwife
DX: O26.893 Other specified pregnancy related conditions, third trimester (principal); Z3A.30 30 weeks gestation of pregnancy; R25.2 Cramp and spasm; O30.043 Twin pregnancy, dichorionic/diamniotic, third trimester; O99.213 Obesity complicating pregnancy, third trimester; E66.01 Morbid (severe) obesity due to excess calories; Z68.41 Body mass index [BMI] 40.0-44.9, adult

== ENCOUNTER 2020-12-18 13:59 | Outpatient (CLI) | payer OTHER ==
[~2020-12-18] VITALS: Ht 160 cm; Wt 110.0 kg
[~2020-12-18 13:59] MED LIST changes: +OMEP-173 PO; -OMEP-218 PO
[2020-12-18 15:05] VITALS: BP 126/81
[2020-12-18] MEDS ORDERED: HOME MED LIST COMPLETE! XX SCH (15:25)
== END 2020-12-18 17:21 | disposition home or self-care (01) ==
LOC: M LDO 13:59
PROVIDERS: ATTEND Obstetrics & Gynecology
DX: O30.043 Twin pregnancy, dichorionic/diamniotic, third trimester (principal); Z3A.34 34 weeks gestation of pregnancy; O32.1XX1 Maternal care for breech presentation, fetus 1

== ENCOUNTER 2020-12-30 13:14 | Inpatient (IN) | payer OTHER ==
[~2020-12-30] VITALS: Ht 157.5 cm; Wt 109.0 kg
[~2020-12-30 13:14] MED LIST changes: -OMEP-173 PO; +OMEP-218 PO
[2020-12-30] MEDS ORDERED: LACTATED RINGER'S 1000 ML IV STA (13:36)
[2020-12-30] MEDS ORDERED: ceFAZolin SOD 2 GM in IV 1 EA IV ONE (13:40)
[2020-12-30] MEDS ORDERED: BICITRA 30ML SOLN UDC PO ONE (13:40)
[2020-12-30] MEDS ORDERED: KETOROLAC 60MG 2ML VIAL As Ordered ONE (13:42)
[2020-12-30] MEDS ORDERED: ONDANSETRON 4MG/2ML VIAL As Ordered ONE (13:42)
[2020-12-30] MEDS ORDERED: dexameTHASONE 4 MG/ML 1ML VIAL (J1100 PER 1MG) As Ordered ONE (13:42)
[2020-12-30] MEDS ORDERED: OXYTOCIN INJ 10 UNITS/ML VIAL (J2590) As Ordered ONE (13:42)
[2020-12-30] MEDS ORDERED: fentaNYL 100 MCG/2 ML INJECTION (J3010) As Ordered ONE (13:43)
[2020-12-30] MEDS ORDERED: MORPHINE PRES-FREE INJ 10 MG/10 ML VIAL (J2274) As Ordered ONE (13:43)
[2020-12-30 13:50] VITALS: BP 214/111
[2020-12-30 13:54] LABS: HEMATOCRIT 31.4 % (36.0-47.0); HEMOGLOBIN 9.8 g/dl (12.0-15.5); MEAN CORPUSCULAR HEMOGLOBIN 24.8 pg (27.0-33.0); MEAN CORPUSCULAR HGB CONC 31.2 g/dl (32.0-36.5); MEAN CORPUSCULAR VOLUME 79.5 fl (80.0-96.0); PLATELET COUNT, AUTOMATED 317 10^3/uL (150-450); RED BLOOD COUNT 3.95 10^6/uL (4.00-5.40); WHITE BLOOD COUNT 11.5 10^3/uL (4.0-10.0)
[2020-12-30] MEDS ORDERED: AZITHROMYCIN INJ 500 MG, VIAL MATE ADAPTER 1 EACH in NS 250 ML IV ONE (13:55)
[2020-12-30] MEDS ORDERED: AZITHROMYCIN INJ 500MG VIAL (J0456 PER 500MG) As Ordered ONE (13:55)
[2020-12-30] MEDS ORDERED: PHENYLephrine 500MCG 5ML (100MCG/ML) SYRINGE As Ordered ONE (14:17)
[2020-12-30] MEDS ORDERED: SIMETHICONE 80MG CHEW TAB PO PRN (14:25)
[2020-12-30] MEDS ORDERED: OXYTOCIN DRIP 30 UNITS in IV 1 EA IV SCH (14:25)
[2020-12-30] MEDS: LR 1,000 ML IV SCH (14:25)
[2020-12-30] MEDS ORDERED: MEASLES,MUMPS,RUBELLA VACCINE INJ (MMR-II) (90707) SC SCH (14:25)
[2020-12-30] MEDS ORDERED: MOM 30ML SUSPENSION UDC PO PRN (14:25)
[2020-12-30] MEDS ORDERED: RHOGAM 300 MCG (1500 IU) INJ (J2790) IM SCH (14:25)
[2020-12-30] MEDS ORDERED: diphenhydrAMINE 50MG/ML VIAL (J1200) As Ordered ONE (15:01)
[2020-12-30] MEDS ORDERED: OXYTOCIN 30 UNITS IN 0.9% NaCl 500ML IV BAG (J2590) As Ordered ONE (15:09)
[2020-12-30] MEDS ORDERED: METOCLOPRAMIDE INJ 10MG/2ML VIAL (J2765 PER 1) IV PRN (15:45)
[2020-12-30] MEDS ORDERED: LR 1,000 ML IV SCH (15:45)
[2020-12-30] MEDS ORDERED: fentaNYL 100 MCG/2 ML INJECTION (J3010) IV PRN (15:45)
[2020-12-30] MEDS ORDERED: PERCOCET 5MG/325MG TAB PO PRN (15:45)
[2020-12-30] MEDS ORDERED: ONDANSETRON 4MG/2ML VIAL IV PRN (15:45)
[2020-12-30 17:00] VITALS: BP 120/73
[2020-12-30 17:30] VITALS: BP 106/62
--- NOTE | 2020-12-30 17:41 | ROOPDOC ---
[facility] Report Of Operation Report of Operation DATE OF PROCEDURE: 12/30/20 SURGEON: Graciela Katz M.D. PLANTING MATERIAL CARRIER: Xiang Sebastian DO( essential for tissue retractions, exposure and delivery of ) PROCEDURE: Primary section PREOPERATIVE DIAGNOSIS: 1. Breech 2. Di/Di twin gestation POSTOPERATIVE DIAGNOSIS: 1. Breech 2. Di/Di twin gestation ANESTHESIA: Spinal ESTIMATED BLOOD LOSS: 800 mL URINE OUTPUT: 25 mL INTRAVENOUS FLUIDS: 1200 mL of lactated Ringer's solution PREOPERATIVE ANTIBIOTICS:. 2 g of Ancef and 500 azithromycin OPERATIVE FINDINGS: Twin A, male 2700 g of 5 pounds 15 ounces, Apgars 8 and 9. Twin B, female 2370 g or 5 pounds 14 ounces, Apgars 8 and 8 SPECIMENS: Placentas DESCRIPTION OF PROCEDURE: After informed consent was obtained and written consent was reviewed. The patient was brought to the operating room where spinal anesthesia was placed. She was then placed in the supine position with a left lateral tilt. Wynn catheter was placed and to gravity. Patient was then prepped and draped in the normal sterile fashion. A timeout operating room was performed identifying the patient, procedure be performed as well as drug allergies. Anesthesia was tested and deemed to be adequate. Pfannenstiel skin incision was made and this was carried down to the underlying rectus fascia. The fascia was then scored and this incision was extended bilaterally. The fascia was then dissected off the underlying rectus muscle superiorly and inferiorly. The rectus muscles were then in the midline. The peritoneum is then entered. Vesicouterine peritoneum was then tented and excised and a bladder flap was created. Mobius retractor was then placed. Next, a curvilinear incision was then made in the lower uterine segment. Amniotomy was performed, productive, clear fluid. breech was brought to the level incision and delivered along with lower extremities upper extremities head. The cord was clamped x2. The was brought over to the warmer with a good cry. Twin B -amniotomy was performed productive clear fluid. Lower extremities then delivered through the incision along with it corpus upper extremities head cord is clamped x2 and that was taken over to the warmer under good cry. Placentas drained and delivered grossly intact. The uterus was cleared of all clots and debris and the uterine incision was then closed using 0 Vicryl in a running locking fashion followed by a second layer of 0 Vicryl in a running nonlocking fashion for imbrication. The abdomen suctioned. Surgical sites reinspected and noted be hemostatic. The retractor was then removed. The anterior peritoneum was then reapproximated with 3-0 Vicryl. The rectus muscles were reapproximated 3-0 Vicryl. The fascia was then closed using 0 Vicryl in a running nonlocking fashion. The subcutaneous tissues was then irrigated and suctioned. Subcutaneous tissue was reapproximated using 3-0 Vicryl. Several subdermal stitch is placed using 3-0 Vicryl and the skin was closed with 4-0 Monocryl and subcuticular fashion. This incision was then cleaned and dried and was dressed. The patient was then taken to recovery in stable condition. All counts were correct. My cardiovascular surgical tech Dr. Sebastian played in an essential role during the operation. He assisted with tissue identification retraction, delivery of the , as well as wound closure. RGACIELA AKTZ MD. Dec 30, 2020 17:40
[2020-12-30] MEDS: PRENATAL VITAMINS CHEWABLE TABLET PO SCH (17:59)
[2020-12-30] MEDS: DOCUSATE SODIUM 100MG CAPSULE PO SCH ×2 (17:59→21:42)
[2020-12-30 18:00] VITALS: BP 126/78
[2020-12-30] MEDS: PERCOCET 5MG/325MG TAB PO PRN (19:21)
[2020-12-30] MEDS: KETOROLAC 30 MG/ML 1ML VIAL IV SCH (21:42)
[2020-12-30 22:00] VITALS: BP 109/65
--- NOTE | 2020-12-30 22:35 | HPEPDOC ---
Obstetrical History & Physical General Date of Admission Dec 30, 2020 at 13:35 History of Present Illness 20-year-old 3 para 1 at 36 weeks 1 day with known di-/Di twin gestation presenting with complaints of contraction. She reports active movements denies any vaginal bleeding or leakage of fluid. course has otherwise been unremarkable Chief Complaint: Contractions, pre-term Information Provided By: Patient Age: 20 : 3 Livin Care Care: Good Care Dating Final EDC: Jan 26, 2021 Final EDC by: LMP EGA at Admission: 36 Past Medical History Past Obstetrical History : Past Obstetrical History: Multigravida Date of Delivery: Jan 29, 2019 Type of Delivery: Spontaneous Vaginal Del. 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 BREAST: . ABDOMEN: Gravid and non-tender to touch. FETUS: Is vertex (VTX) by sterile vaginal examination (SVE), fetus is vertex (VTX) by Francisco. HEART RATE: Regular rate and rhythm. LUNGS: Clear to auscultation (CTA). Vital Signs/I&O Vital Signs Date Time Temp Pulse Resp B/P (MAP) Pulse Ox O2 Delivery O2 Flow Rate FiO2 12/30/20 22:00 97.1 127 20 109/65 (80) 97 Room Air Laboratory Data 24H LABS Laboratory Tests 2 12/30/20 13:30: Nucleated Red Blood Cells % (auto) 0.0, Syphilis Serology NONREACTIVE 12/30/20 14:06: Serology Scanned Report Hepatitis B Testing CBC/BMP Laboratory Tests 12/30/20 13:30 Pertinent Laboratoy Data Blood Type: O- RBC Antibody Screen: Negative HIV: Negative Hepatitis B: Negative Hepatitis C: Negative Rapid Plasma Reagin: Nonreactive Rubella: Immune Chlamydia/Gonorrhea: Negative Glucose Tolerance Test: 123 Anatomy Ultrasound Normal Anatomy: Yes Vaginal Examination Dilation: 5 cm Effacement: 100% Presentation: Breech presentation (Bulging bag of membrane) Assessment Variability: Moderate Tocometer Frequency: regular, every 1-3 min. Assessment/Plan Assessment 20-year-old at 36 weeks 1 day with Di/Di twin gestation breech and an active labor Plan -Plan is to proceed with section JOSY VALERIO MD. Dec 30, 2020 22:35
[2020-12-30] MEDS ORDERED: PERCOCET PO (22:44)
[2020-12-30] MEDS ORDERED: IBUP80TA PO (22:44)
[2020-12-31] MEDS: PERCOCET 5MG/325MG TAB PO PRN ×4 (01:40→19:44)
[2020-12-31 02:00] VITALS: BP 122/76
[2020-12-31] MEDS: LR 1,000 ML IV SCH ×2 (03:35→06:25)
[2020-12-31] MEDS: KETOROLAC 30 MG/ML 1ML VIAL IV SCH ×2 (03:35→08:29)
[2020-12-31 06:00] VITALS: BP 126/75
[2020-12-31 07:44] LABS: HEMATOCRIT 22.8 % (36.0-47.0); MEAN CORPUSCULAR HEMOGLOBIN 24.9 pg (27.0-33.0); MEAN CORPUSCULAR HGB CONC 31.1 g/dl (32.0-36.5); PLATELET COUNT, AUTOMATED 241 10^3/uL (150-450); RED BLOOD COUNT 2.85 10^6/uL (4.00-5.40); WHITE BLOOD COUNT 13.3 10^3/uL (4.0-10.0)
--- NOTE | 2020-12-31 07:56 | IPNPDOC ---
Text Note Date of Service The patient was seen on 12/31/20. NOTE PO #1 Feels well. Adequate pain management. OOB independently. Due to void VSS, afebrile, normotensive Breasts soft Fundus firm, NT Dressing intact Lochia rubra light without odor PO #1 Routine care. Consider discharge in am VS,Fishbone, I+O VS, Fishbone, I+O Laboratory Tests 12/30/20 13:30 Vital Signs Date Time Temp Pulse Resp B/P (MAP) Pulse Ox O2 Delivery O2 Flow Rate FiO2 12/31/20 06:54 18 Room Air 12/31/20 06:00 98.4 96 126/75 (92) 97 I&O- Last 24 Hours up to 6 AM 12/31/20 06:00 Intake Total 5852 ml Output Total 2050 ml Balance 3802 ml Betty Garcia CNM Dec 31, 2020 07:56
[2020-12-31 08:00] LABS: HEMOGLOBIN 7.1 g/dl (12.0-15.5)
[2020-12-31] MEDS: PRENATAL VITAMINS CHEWABLE TABLET PO SCH (08:29)
[2020-12-31] MEDS: DOCUSATE SODIUM 100MG CAPSULE PO SCH ×2 (08:29→19:44)
[2020-12-31 10:00] VITALS: BP 121/65
[2020-12-31 14:00] VITALS: BP 113/76
[2020-12-31] MEDS: IBUPROFEN 800 MG TAB PO SCH (16:35)
[2020-12-31 18:00] VITALS: BP 124/74
[2020-12-31 22:09] VITALS: BP 109/56
[2021-01-01] MEDS: IBUPROFEN 800 MG TAB PO SCH ×2 (01:44→09:22)
[2021-01-01] MEDS: PERCOCET 5MG/325MG TAB PO PRN ×2 (01:48→07:51)
[2021-01-01 02:16] VITALS: BP 133/91
[2021-01-01 06:49] VITALS: BP 118/69
--- NOTE | 2021-01-01 07:48 | DS.PDOC ---
Discharge Summary General Date of Admission Dec 30, 2020 at 13:35 Date of Discharge Jan 01, 2021 Discharge Summary PROCEDURES PERFORMED DURING STAY: Primary section ADMITTING DIAGNOSES: 1. Di/di twin gestation, breech presentation 2. labor DISCHARGE DIAGNOSES: 1. Primary section COMPLICATIONS/CHIEF COMPLAINT: C Section. HISTORY OF PRESENT ILLNESS: 20yo presented 12/30 with contractions. Di/di twins were found presenting breech. Primary section performed by Dr Katz 12/30. HOSPITAL COURSE: Tolerating diet. Adequate pain management. Voiding and passing flatus. DISCHARGE MEDICATIONS: Please see below. ALLERGIES: Please see below. PHYSICAL EXAMINATION ON DISCHARGE: VITAL SIGNS: Please see below. GENERAL: No distress CARDIOVASCULAR EXAMINATION: HRR, normotensive RESPIRATORY EXAMINATION: Clear and unlabored ABDOMINAL EXAMINATION: Fundus firm, Dressing intact EXTREMITIES: Equal strength and motion SKIN: Intact NEUROLOGICAL EXAMINATION: Grossly intact PSYCHIATRIC EXAMINATION: Appropriate LABORATORY DATA: Please see below. PROGNOSIS: Good ACTIVITY: As tolerated. Pelvic rest. DIET: As tolerated DISCHARGE PLAN: Home today with family DISCHARGE INSTRUCTIONS: 1. Pelvic rest for 6 weeks. Remove dressing day 5. Wash with warm soapy water daily, rinse well, pat dry. Call with fever, nausea, vomiting, chills, foul lochia, wound exudate or s/s infection. RTO 2wks and 6 wks DISCHARGE CONDITION: Stable. TIME SPENT ON DISCHARGE: 10 minutes. Vital Signs/I&Os Vital Signs Date Time Temp Pulse Resp B/P (MAP) Pulse Ox O2 Delivery O2 Flow Rate FiO2 01/01/21 06:49 98.1 107 18 118/69 (85) 99 Room Air I&O- Last 24 Hours up to 6 AM 01/01/21 06:00 Intake Total 300 ml Balance 300 ml Discharge Medications Scheduled Ibuprofen (Ibuprofen) 800 Mg Tablet, 800 MG PO Q8H Scheduled PRN Oxycodone/Acetaminophen (Oxycodone-Acetaminophen 5-325) 1 Each Tablet, 1 TAB PO Q4H PRN for MILD/MODERATE PAIN (PS 1-7) Allergies Coded Allergies: No Known Allergies (Unverified , 12/29/20) Betty Garcia CNM Jan 01, 2021 07:48
[2021-01-01] MEDS: DOCUSATE SODIUM 100MG CAPSULE PO SCH (09:21)
[2021-01-01] MEDS: PRENATAL VITAMINS CHEWABLE TABLET PO SCH (09:21)
[2021-01-01 10:00] VITALS: BP 118/71
== END 2021-01-01 12:05 | disposition home or self-care (01) | DRG 540 ==
LOC: M LDO 13:14 → M LDI 13:35 → M OBS 17:00
PROVIDERS: ADMIT Obstetrics & Gynecology; ATTEND Obstetrics & Gynecology
PROC: 10D00Z1 Extraction of Products of Conception, Low, Open Approach (ICD-10-PCS; principal; 2020-12-30 14:49)
DX: O32.1XX1 Maternal care for breech presentation, fetus 1 (principal); O60.14X1 Preterm labor third trimester with preterm delivery third trimester, fetus 1; O60.14X2 Preterm labor third trimester with preterm delivery third trimester, fetus 2; Z37.2 Twins, both liveborn; Z3A.36 36 weeks gestation of pregnancy; O32.1XX2 Maternal care for breech presentation, fetus 2; O30.043 Twin pregnancy, dichorionic/diamniotic, third trimester

== ENCOUNTER → 2024-07-28 | Outpatient (CLI) | payer MEDICAID, OTHER ==
[~2024-07-28] MED LIST changes: +IBUP80TA PO; +OMEP-173 PO; -OMEP-218 PO; +PERCOCET PO
== END ==
LOC: M RAD 15:31
PROVIDERS: ATTEND Advanced Practice Midwife
DX: Z34.93 Encounter for supervision of normal pregnancy, unspecified, third trimester (principal); Z3A.31 31 weeks gestation of pregnancy

== ENCOUNTER → 2024-07-28 | Outpatient (CLI) | payer MEDICAID, OTHER ==
[2024-07-28 17:18] LABS: HEMATOCRIT 33.3 % (36.0-47.0); HEMOGLOBIN 10.6 g/dl (12.0-15.5); MEAN CORPUSCULAR HEMOGLOBIN 27.5 pg (27.0-33.0); MEAN CORPUSCULAR HGB CONC 31.8 g/dl (32.0-36.5); MEAN CORPUSCULAR VOLUME 86.5 fl (80.0-96.0); PLATELET COUNT, AUTOMATED 357 10^3/uL (150-450); RED BLOOD COUNT 3.85 10^6/uL (4.00-5.40); WHITE BLOOD COUNT 9.1 10^3/uL (4.0-10.0)
[2024-07-28 18:08] LABS: HIV 1&2 SCREEN NEGATIVE (NEGATIVE)
[2024-07-28 18:16] LABS: HEPATITIS C VIRUS ABY INDEX 0.06 INDEX (<0.8)
[2024-07-28 19:16] LABS: Trichomonas vaginalis (AMP) NOT DETECTED (NEGATIVE)
[2024-07-28 19:39] LABS: GC DNA AMPLIFICATION NEGATIVE (NEGATIVE)
== END ==
LOC: M PLALAB 14:47
PROVIDERS: ATTEND Advanced Practice Midwife
DX: O34.219 Maternal care for unspecified type scar from previous cesarean delivery (principal); O09.219 Supervision of pregnancy with history of pre-term labor, unspecified trimester; Z3A.00 Weeks of gestation of pregnancy not specified

== ENCOUNTER 2024-08-16 19:13 | Outpatient (CLI) | payer OTHER, MEDICAID ==
[~2024-08-16] VITALS: Ht 162.6 cm; Wt 101.9 kg
[2024-08-16 19:49] VITALS: BP 123/80
[2024-08-16 20:48] LABS: KETONE, URINE AUTO RFX NEGATIVE (NEGATIVE); MUCUS, URINE RFX SMALL (NEGATIVE); NITRITE, URINE AUTO RFX NEGATIVE (NEGATIVE); RBC, URINE AUTO RFX 2 /HPF (0-3); SQUAM EPITHELIAL CELL UR AURFX 9 /HPF (0-6); WBC, URINE AUTO RFX 6 /HPF (0-3)
[2024-08-16 20:50] LABS: LEUKOCYTE ESTERASE UR AUTO RFX 2+ (NEGATIVE)
== END 2024-08-16 20:31 | disposition home or self-care (01) ==
LOC: M LDO 19:13
PROVIDERS: ATTEND Obstetrics & Gynecology
DX: O26.893 Other specified pregnancy related conditions, third trimester (principal); O09.213 Supervision of pregnancy with history of pre-term labor, third trimester; R10.2 Pelvic and perineal pain; Z3A.34 34 weeks gestation of pregnancy
CPT/HCPCS: 59025; 81001; 87086; G0463

== ENCOUNTER → 2024-08-27 | Outpatient (CLI) | payer OTHER | LOC: M PLALAB 13:14 | PROVIDERS: ATTEND Advanced Practice Midwife | DX: Z34.83 Encounter for supervision of other normal pregnancy, third trimester (principal) ==

== ENCOUNTER 2024-09-05 10:35 | Inpatient (IN) | payer MEDICAID, OTHER ==
[~2024-09-05] VITALS: Ht 160 cm; Wt 104.5 kg
[2024-09-05] VITALS (13 sets, daily range): BP systolic 117–143; BP diastolic 71–95; TEMP 97.6; O2SAT 95–98
[~2024-09-05 10:35] MED LIST changes: +MULTTAB20 PO
[2024-09-05] MEDS ORDERED: IBUP-1022 PO (10:54)
[2024-09-05] MEDS ORDERED: CETI5TAB2 PO (10:54)
[2024-09-05 11:37] LABS: HEMATOCRIT 33.2 % (36.0-47.0); HEMOGLOBIN 10.3 g/dl (12.0-15.5); MEAN CORPUSCULAR HEMOGLOBIN 25.9 pg (27.0-33.0); MEAN CORPUSCULAR VOLUME 83.4 fl (80.0-96.0); PLATELET COUNT, AUTOMATED 330 10^3/uL (150-450); RED BLOOD COUNT 3.98 10^6/uL (4.00-5.40)
[2024-09-05] MEDS ORDERED: LR 1,000 ML IV SCH (11:40)
[2024-09-05] MEDS ORDERED: METHYLERGONOVINE MALEATE 0.2MG/ML 1ML VIAL IM PRN (11:40)
[2024-09-05] MEDS ORDERED: OXYTOCIN DRIP 30 UNITS in IV 1 EA IV PRN (11:40)
[2024-09-05] MEDS ORDERED: TRANEXAMIC ACID INJection 1,000 MG in NS 100 ML IV PRN (11:40)
[2024-09-05] MEDS ORDERED: CARBOPROST TROMETHAMINE 250 MCG/ML AMP IM PRN (11:40)
[2024-09-05] MEDS ORDERED: LIDOCAINE 1% MDV 20ML VIAL INFIL PRN (11:40)
[2024-09-05 11:41] LABS: TOTAL PROTEIN,RANDOM URINE 12.1 MG/DL (0.0-14.0)
[2024-09-05 11:45] LABS: CREATININE,RANDOM URINE 68.8 MG/DL
[2024-09-05 11:55] LABS: URIC ACID 7.7 MG/DL (3.1-7.8)
[2024-09-05 11:57] LABS: LDH LACTATE DEHYDROGENASE 173 U/L (120-246)
[2024-09-05 11:58] LABS: ALT/SGPT 15 U/L (7.0-40); AST/SGOT 19 U/L (<34); BILIRUBIN,TOTAL 0.3 MG/DL (0.3-1.2); CREATININE FOR GFR 0.59 MG/DL (0.55-1.30); GLOMERULAR FILTRATION RATE > 90.0 (>60)
[2024-09-05] MEDS: LACTATED RINGER'S 1000 ML IV STA (12:08)
[2024-09-05] MEDS: ceFAZolin SODIUM 2 GM in DEXTROSE 5% (D5W) ADV/MINI-BAG 50 ML IV ONE (12:08)
[2024-09-05] MEDS: BICITRA 30ML SOLN UDC PO ONE (12:08)
[2024-09-05] MEDS ORDERED: OXYTOCIN 30UNITS IN 0.9% NaCl 500ML IV BAG As Ordered ONE (12:12)
[2024-09-05] MEDS ORDERED: MORPHINE PRES-FREE INJ 10 MG/10 ML VIAL As Ordered ONE (12:13)
[2024-09-05 12:38] LABS: HEPATITIS C VIRUS ABY INDEX 0.04 INDEX (<0.8)
[2024-09-05] MEDS ORDERED: MOM 30ML SUSPENSION UDC PO PRN (12:55)
[2024-09-05] MEDS ORDERED: PERCOCET 5MG/325MG TAB PO PRN (12:55)
[2024-09-05] MEDS ORDERED: RHOGAM 300MCG (1500IU) INJ IM SCH (12:55)
[2024-09-05] MEDS: OXYTOCIN DRIP 30 UNITS in IV 1 EA IV SCH (12:55)
[2024-09-05] MEDS: LR 1,000 ML IV SCH (12:55)
[2024-09-05] MEDS ORDERED: SIMETHICONE 80MG CHEW TAB PO PRN (12:55)
[2024-09-05] MEDS ORDERED: fentaNYL 100 MCG/2 ML INJECTION As Ordered ONE (13:25)
[2024-09-05] MEDS ORDERED: propofoL 200 MG/20 ML VIAL As Ordered ONE (13:25)
[2024-09-05] MEDS ORDERED: ACETAMINOPHEN 1000MG/100ML IV BAG As Ordered ONE (13:39)
[2024-09-05] MEDS ORDERED: MIDAZOLAM INJ 2MG/2ML VIAL As Ordered ONE (13:40)
[2024-09-05] MEDS ORDERED: ROCURONIUM BROMIDE 50MG/5ML VIAL As Ordered ONE (13:42)
[2024-09-05] MEDS ORDERED: SUGAMMADEX SODIUM 500 MG/5 ML VIAL (BRIDION) As Ordered ONE (13:42)
[2024-09-05] MEDS ORDERED: ONDANSETRON 4MG 2ML VIAL As Ordered ONE (13:44)
[2024-09-05] MEDS ORDERED: KETOROLAC 30 MG/ML 1ML VIAL As Ordered ONE (13:44)
[2024-09-05 14:06] LABS: CORD GAS ABE A -2.9; CORD GAS HCO3 A 23.7 MMOL/L; CORD GAS O2 SAT A 56.8 %; CORD GAS PCO2 A 48.3 mmHg; CORD GAS PH A 7.308 UNITS; CORD GAS PO2 A 24.3 mmHg; CORD GAS SBC A 21.3 MMOL/L; CORD GAS TCO2 A 25.1 MMOL/L
[2024-09-05 14:07] LABS: CORD GAS ABE V -2.4; CORD GAS HCO3 V 23.8 MMOL/L; CORD GAS O2 SAT V 78.7 %; CORD GAS PCO2 V 46.7 mmHg; CORD GAS PH V 7.325 UNITS; CORD GAS PO2 V 34.9 mmHg; CORD GAS SBC V 22.1 MMOL/L; CORD GAS TCO2 V 25.2 MMOL/L
[2024-09-05] MEDS ORDERED: diphenhydrAMINE 50MG/ML VIAL IV PRN (14:15)
[2024-09-05] MEDS ORDERED: ONDANSETRON 4MG 2ML VIAL IV PRN (14:15)
[2024-09-05] MEDS: fentaNYL 100 MCG/2 ML INJECTION IV PRN (14:52)
[2024-09-05] MEDS: oxyCODONE 5MG TAB PO PRN (15:26)
[2024-09-05] MEDS: HYDROMORPHONE HCL 0.5 MG/ 0.5 ML SYRINGE IV PRN (15:26)
[2024-09-05 17:08] LABS: HIV 1&2 SCREEN NEGATIVE (NEGATIVE)
[2024-09-05] MEDS: PERCOCET 5MG/325MG TAB PO PRN (17:24)
[2024-09-05] MEDS: DOCUSATE SODIUM 100MG CAPSULE PO SCH (20:08)
[2024-09-05] MEDS: KETOROLAC 30 MG/ML 1ML VIAL IV SCH (21:00)
[2024-09-06 02:00] VITALS: BP 126/75; O2SAT 98
[2024-09-06] MEDS: MORPHINE 4 MG/ML 1ML VIAL IV ONE (02:01)
[2024-09-06 06:00] VITALS: BP 110/67; O2SAT 97
[2024-09-06 07:16] LABS: HEMATOCRIT 22.1 % (36.0-47.0); MEAN CORPUSCULAR HEMOGLOBIN 26.4 pg (27.0-33.0); MEAN CORPUSCULAR HGB CONC 31.7 g/dl (32.0-36.5); MEAN CORPUSCULAR VOLUME 83.4 fl (80.0-96.0); PLATELET COUNT, AUTOMATED 260 10^3/uL (150-450); RED BLOOD COUNT 2.65 10^6/uL (4.00-5.40); WHITE BLOOD COUNT 12.2 10^3/uL (4.0-10.0)
[2024-09-06] MEDS: PRENATAL VITAMINS CHEWABLE TABLET PO SCH (07:46)
[2024-09-06] MEDS: ONDANSETRON 4MG 2ML VIAL IV PRN (07:46)
[2024-09-06 10:00] VITALS: BP 127/82; O2SAT 98
[2024-09-06] MEDS ORDERED: COLA100C5 PO (16:24)
[2024-09-06] MEDS: IBUPROFEN 800 MG TAB PO SCH (16:45)
[2024-09-06 18:00] VITALS: BP 134/80; O2SAT 97
[2024-09-06 22:05] VITALS: BP 120/76; O2SAT 96
[2024-09-07 02:04] VITALS: BP 139/89; O2SAT 97
[2024-09-07 05:53] VITALS: BP 120/72; O2SAT 97
[2024-09-07] MEDS ORDERED: MEASLES,MUMPS,RUBELLA VACCINE INJ (MMR-II) SC.IMMUN ONE (09:00)
[2024-09-07 10:00] VITALS: BP 132/72; O2SAT 96
== END 2024-09-07 12:35 | disposition home or self-care (01) | DRG 540 ==
LOC: M LDO 10:35 → M LDI 11:44 → M OBS 16:14
PROVIDERS: ADMIT Advanced Practice Midwife; ATTEND Obstetrics & Gynecology
PROC: 0UB70ZZ Excision of Bilateral Fallopian Tubes, Open Approach (ICD-10-PCS; 2024-09-05)
PROC: 10D00Z1 Extraction of Products of Conception, Low, Open Approach (ICD-10-PCS; principal; 2024-09-05 12:26)
DX: O13.4 Gestational [pregnancy-induced] hypertension without significant proteinuria, complicating childbirth (principal); Z37.0 Single live birth; Z3A.37 37 weeks gestation of pregnancy; O34.211 Maternal care for low transverse scar from previous cesarean delivery; Z30.2 Encounter for sterilization

== ENCOUNTER 2025-01-05 18:17 | Emergency (ER) | payer MEDICAID, OTHER, SELFPAY ==
[~2025-01-05] VITALS: Ht 157.5 cm; Wt 103.7 kg
[~2025-01-05 18:17] MED LIST changes: +CETI5TAB2 PO; +IBUP600T42 PO
[2025-01-05 19:06] LABS: BASO # 0.0 10^3/uL (0.0-0.2); BASO % 0.4 % (0.0-1.0); EOS # 0.1 10^3/uL (0.0-0.5); EOS % 1.4 % (0.0-3.0); LYMPH # 2.6 10^3/uL (1.5-5.0); LYMPH % 26.7 % (24.0-44.0); MONO # 0.5 10^3/uL (0.0-0.8); MONO % 5.4 % (2.0-8.0); NEUTROPHILS # 6.4 10^3/uL (1.5-8.5); NEUTROPHILS % 65.8 % (36.0-66.0); PLATELET COUNT, AUTOMATED 468 10^3/uL (150-450)
[2025-01-05 19:16] LABS: HCG, SERUM QUALITATIVE NEGATIVE (NEGATIVE)
[2025-01-05 19:18] LABS: ALT/SGPT 38 U/L (7.0-40); AST/SGOT 19 U/L (<34); CALCIUM LEVEL 8.9 MG/DL (8.5-10.1); CARBON DIOXIDE LEVEL 26 MMOL/L (20-31); CHLORIDE LEVEL 106 MMOL/L (98-107); CREATININE FOR GFR 0.76 MG/DL (0.55-1.30); GLOMERULAR FILTRATION RATE > 90.0 (>60); POTASSIUM SERUM 3.9 MMOL/L (3.5-5.1); SODIUM LEVEL 143 MMOL/L (136-145)
[2025-01-05 19:20] LABS: KETONE, URINE AUTO RFX NEGATIVE (NEGATIVE); MUCUS, URINE RFX SMALL (NEGATIVE); NITRITE, URINE AUTO RFX NEGATIVE (NEGATIVE); RBC, URINE AUTO RFX TNTC /HPF (0-3); SQUAM EPITHELIAL CELL UR AURFX 7 /HPF (0-6); WBC, URINE AUTO RFX 4 /HPF (0-3)
[2025-01-05 19:22] LABS: LEUKOCYTE ESTERASE UR AUTO RFX TRACE (NEGATIVE)
[2025-01-05] MEDS ORDERED: KETOROLAC 30 MG/ML 1 ML VIAL IV ONE (20:35)
[2025-01-05] MEDS ORDERED: ISOVUE-370 76% 100 ML VIAL As Ordered ONE (20:36)
[2025-01-05] MEDS: KETOROLAC 30 MG/ML 1 ML VIAL IV ONE (23:11)
[2025-01-06 01:30] VITALS: BP 112/71; TEMP 97.6; O2SAT 100
== END 2025-01-06 01:49 | disposition home or self-care (01) ==
LOC: M ED 18:17
DX: N94.6 Dysmenorrhea, unspecified (principal); R10.9 Unspecified abdominal pain; J45.909 Unspecified asthma, uncomplicated; R51.9 Headache, unspecified; Z98.51 Tubal ligation status; K76.0 Fatty (change of) liver, not elsewhere classified; K80.20 Calculus of gallbladder without cholecystitis without obstruction
CPT/HCPCS: 74177; 80048; 80076; 81001; 83690; 84703; 85025; 87086; 96374; 99285; J1885; Q9967